=== PATIENT | male | born 2000 | race Caucasian/White ===

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

== ENCOUNTER 2023-12-18 10:20 | Outpatient (CLI) | payer OTHER | END 2023-12-18 10:27 | disposition home or self-care (01) | LOC: RAD 10:20 | PROVIDERS: ATTEND Physical Medicine & Rehabilitation | DX: M54.59 Other low back pain (principal) ==